=== PATIENT | female | born 1960 | race Two or more races ===

== ENCOUNTER 2017-11-05 09:33 | Outpatient (CLI) | payer OTHER ==
[~2017-11-05 09:33] MED LIST: AZITHROMYCIN600 MG; IBUPROFEN800 MG PO; KETO10TA2 PO; LEVSIN0.125 MG PO; MUPIROCIN15 GM TP; NABUMETONE500 MG PO; NORFLEX100MG PO; Neurontin PO; ORPH100T PO; OXYC1TAB9 PO; PERCOCET 5/3251 TAB PO; PNEU16DI2; PROVENTIL0.5 ML/2.5; SMZ-TMP DS 800-1 TAB PO; VASOTEC10 MG PO; XARELTO10 MG PO
== END 2017-11-05 17:00 | disposition home or self-care (01) ==
LOC: RX STUDY 09:33
DX: R13.14 Dysphagia, pharyngoesophageal phase (principal)

== ENCOUNTER 2018-09-22 17:51 | Outpatient (CLI) | payer OTHER | END 2018-09-22 18:00 | disposition home or self-care (01) | LOC: RAD 17:51 | DX: R05 Cough (principal) ==

== ENCOUNTER 2018-12-27 10:25 | Emergency (ER) | payer OTHER ==
[~2018-12-27] VITALS: Ht 160 cm; Wt 124.7 kg
[2018-12-27] MEDS ORDERED: METHOTREXATE2.5 MG PO (11:07)
[2018-12-27] MEDS ORDERED: TALTZ SYRI80 MG/1 ML SQ (11:08)
== END 2018-12-27 11:52 | disposition home or self-care (01) ==
LOC: ER 10:25
DX: J02.9 Acute pharyngitis, unspecified (principal)

== ENCOUNTER 2019-03-16 08:27 | Outpatient (CLI) | payer OTHER ==
[~2019-03-16 08:27] MED LIST changes: +METHOTREXATE2.5 MG PO; +TALTZ SYRI80 MG/1 ML SQ
== END 2019-03-16 08:29 | disposition home or self-care (01) ==
LOC: RX STUDY 08:27
DX: R13.19 Other dysphagia (principal)

== ENCOUNTER → 2019-03-24 | Outpatient (CLI) | payer OTHER | END | disposition home or self-care (01) | LOC: TOM 08:18 | DX: R13.19 Other dysphagia (principal) ==

== ENCOUNTER 2020-01-13 09:30 | Day surgery (SDC) | payer OTHER ==
[~2020-01-13 09:30] MED LIST changes: +VASOTEC20 M1 PO
[2020-01-13] MEDS ORDERED: PERCOCET 5-3251 EACH PO (12:05)
[2020-01-13] MEDS ORDERED: RECTICARE30 GM TOP (12:06)
== END 2020-01-13 21:49 | disposition home or self-care (01) ==
LOC: CIR.AMB 09:30 → ADM 10:00 → CIR.AMB 10:00
PROVIDERS: ATTEND Surgery
DX: K60.1 Chronic anal fissure (principal); K62.4 Stenosis of anus and rectum

== ENCOUNTER 2020-02-23 12:02 | Outpatient (CLI) | payer OTHER ==
[~2020-02-23 12:02] MED LIST changes: +PERCOCET 5-3251 EACH PO; +RECTICARE30 GM TOP
== END 2020-02-23 12:17 | disposition home or self-care (01) ==
LOC: RAD 12:02
PROVIDERS: ATTEND Orthopaedic Surgery
DX: M25.561 Pain in right knee (principal); M25.562 Pain in left knee

== ENCOUNTER 2020-05-30 18:59 | Emergency (ER) | payer OTHER ==
[~2020-05-30] VITALS: Ht 160 cm; Wt 124.7 kg
[2020-05-30] MEDS ORDERED: RELAFEN 750 MG (19:19)
[2020-05-30] MEDS ORDERED: DICLOFENAC POTA50 MG (19:20)
== END 2020-05-30 21:19 | disposition home or self-care (01) ==
LOC: ER 18:59
DX: M25.561 Pain in right knee (principal)

== ENCOUNTER 2020-09-04 14:20 | Outpatient (CLI) | payer OTHER ==
[~2020-09-04 14:20] MED LIST changes: +DICLOFENAC POTA50 MG; +RELAFEN 750 MG
== END 2020-09-04 14:35 | disposition home or self-care (01) ==
LOC: RAD 14:20
PROVIDERS: ATTEND Orthopaedic Surgery
DX: M25.561 Pain in right knee (principal); M25.562 Pain in left knee

== ENCOUNTER 2020-11-09 11:17 | Outpatient (CLI) | payer OTHER | END 2020-11-09 11:28 | disposition home or self-care (01) | LOC: RAD 11:17 | PROVIDERS: ATTEND Orthopaedic Surgery | DX: R07.89 Other chest pain (principal) ==

== ENCOUNTER 2021-03-27 08:00 | Outpatient (CLI) | payer OTHER | END 2021-03-27 08:30 | disposition home or self-care (01) | LOC: PPH VACUNA 08:00 | DX: Z23 Encounter for immunization (principal) ==

== ENCOUNTER 2021-04-03 07:47 | Day surgery (SDC) | payer OTHER | END 2021-04-03 12:05 | disposition home or self-care (01) | LOC: AMB-ENDOS 07:47 | PROVIDERS: ATTEND Surgery | DX: K63.5 Polyp of colon (principal); K64.8 Other hemorrhoids; Z20.822 Contact with and (suspected) exposure to COVID-19 ==

== ENCOUNTER 2022-01-05 16:46 | Emergency (ER) | payer OTHER ==
[~2022-01-05] VITALS: Ht 165.1 cm; Wt 99.8 kg
== END 2022-01-05 20:11 | disposition home or self-care (01) ==
LOC: ER 16:46
DX: S49.81XA Other specified injuries of right shoulder and upper arm, initial encounter (principal); S69.82XA Other specified injuries of left wrist, hand and finger(s), initial encounter; S69.81XA Other specified injuries of right wrist, hand and finger(s), initial encounter; S89.82XA Other specified injuries of left lower leg, initial encounter; S89.81XA Other specified injuries of right lower leg, initial encounter; S39.82XA Other specified injuries of lower back, initial encounter; S79.811A Other specified injuries of right hip, initial encounter; W19.XXXA Unspecified fall, initial encounter; Y93.89 Activity, other specified; Y92.89 Other specified places as the place of occurrence of the external cause; Z88.0 Allergy status to penicillin; Z91.013 Allergy to seafood; I10 Essential (primary) hypertension

== ENCOUNTER 2022-10-12 18:33 | Emergency (ER) | payer OTHER ==
[~2022-10-12] VITALS: Ht 160 cm; Wt 124.7 kg
[2022-10-12] MEDS ORDERED: XELJANZ1 MG/1 ML PO (18:55)
[2022-10-12] MEDS ORDERED: METAXALONE800 MG PO (22:10)
[2022-10-12] MEDS ORDERED: MEDROLPACK PO (22:10)
== END 2022-10-12 22:14 | disposition home or self-care (01) ==
LOC: ER 18:33
DX: M54.50 Low back pain, unspecified (principal); Z88.0 Allergy status to penicillin; Z91.013 Allergy to seafood; Z88.1 Allergy status to other antibiotic agents